=== PATIENT | female | born 1990 | race African-American/Black ===

== ENCOUNTER 2016-04-19 14:26 | Emergency (ER) | payer BC ==
[2016-04-19 14:36] VITALS: BP 112/66; PULSE 120; TEMP 98.7; BMI 30.9
--- NOTE | 2016-04-19 16:13 | PDOC ---
History of Present Illness - General Chief Complaint: Cold Symptoms Stated Complaint: FEVER, COUGH, COLD Time Seen by Provider: 04/19/16 15:46 History Source: Patient Exam Limitations: No Limitations - History of Present Illness Initial Comments: 04/19/16 16:07 cough, sore throat x 3 days; had fever; no NVD; 8 months no OB COs Timing/Duration: reports: yesterday Severity: reports: mild Possible Cause: No: allergen exposure, irritant gases exposure Modifying Factors: improves with: albuterol inhaler Past History - Past Medical History Allergies/Adverse Reactions: Allergies Allergy/AdvReac Type Severity Reaction Status Date / Time Penicillins Allergy Swelling Verified 04/19/16 14:36 prednisone Allergy Swelling Verified 04/19/16 14:36 Home Medications: Ambulatory Orders Pnv95/Ferrous Fumarate/FA [ Caplet] 1 each PO DAILY 11/18/15 Asthma: Yes - Surgical History Abdominal Surgery: Yes - Reproductive History (#): 1 - Psycho/Social/Smoking Cessation Hx Anxiety: No Suicidal Ideation: No Smoking History: Never smoked Hx Alcohol Use: No Drug/Substance Use Hx: No Substance Use Type: None Review of Systems - Review of Systems Constitutional: Yes: Malaise. No: Chills, Fever HEENTM: Yes: Nose Congestion, Throat Pain. No: Throat Swelling Respiratory: No: Cough, Stridor, Wheezing Cardiac (ROS): No: Symptoms Reported ABD/GI: No: Symptoms Reported, Diarrhea, Nausea, Indigestion : No: Frequency, Urgency *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 - Vital Signs Last Vital Signs Temp Pulse Resp BP Pulse Ox 98.7 F 120 H 20 112/66 98 04/19/16 14:33 04/19/16 14:33 04/19/16 14:33 04/19/16 14:33 04/19/16 14:33 - 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 General Appearance: Yes: Appropriately Dressed. No: Apparent Distress HEENT: positive: Nasal Congestion, Rhinorrhea. negative: Tonsillar Erythema, TM Bulging, TM Dull, TM Erythema Neck: positive: Supple, Lymphadenopathy (R), Lymphadenopathy (L). negative: Tender, Rigid Respiratory/Chest: positive: Lungs Clear. negative: Chest Tender, Respiratory Distress Cardiovascular: positive: Regular Rhythm, Regular Rate. negative: Murmur Gastrointestinal/Abdominal: positive: Normal Bowel Sounds, Soft. negative: Tender Medical Decision Making - Medical Decision Making 04/19/16 16:10 04/19/16 16:11 will tx as viral URI; tylenol with rest at home *DC/Admit/Observation/Transfer Diagnosis at time of Disposition: URI, acute - Discharge Dispostion Disposition: HOME Condition at time of disposition: Stable Admit: No - Patient Instructions Additional Instructions: please rest at home; lots of fluids; tylenol for fever - Post Discharge Activity Work/School Note: Back to Work
== END 2016-04-19 16:17 | disposition home or self-care (01) ==
LOC: JERFT 14:26
DX: J06.9 Acute upper respiratory infection, unspecified (principal)
CPT/HCPCS: 99281-25

== ENCOUNTER 2016-06-09 07:27 | Inpatient (IN) | payer BC ==
[2016-06-09] MEDS ORDERED: AMPICILLIN - 100 ML IVPB ONE (09:00)
[2016-06-09] MEDS ORDERED: TUBERCULIN PPD 5 TU/0.1ML SYRINGE (IN PATIENT USE ONLY) ID ONE (09:00)
[2016-06-09 09:14] LABS: BASOPHIL 0.6 % (0-2.0); EOSINOPHIL 1.7 % (0-4.5); MCH 29.5 pg (25.7-33.7); MCHC 33.4 g/dl (32.0-36.0); MEAN CELL VOLUME 88.5 fl (80-96); MEAN PLT VOLUME 8.8 fl (7.5-11.1); NEUTROPHILS 68.2 % (42.8-82.8); PLATELET COUNT 182 K/MM3 (134-434); RDW 14.6 % (11.6-15.6); WHITE BLOOD COUNT 8.3 K/mm3 (4.0-10.0)
[2016-06-09] MEDS ORDERED: DEXTROSE 5%-LACTATED RINGERS 1,000 ML IV SCH ×2 (09:15→11:30)
[2016-06-09 09:31] LABS: CALCIUM 9.7 mg/dL (8.5-10.1); CREATININE 0.9 mg/dL (0.55-1.02)
[2016-06-09 09:36] VITALS: BMI 32.3
[2016-06-09 09:48] LABS: INR 1.01 (0.82-1.09); PROTHROMBIN TIME (PATIENT) 11.1 SEC (9.98-11.88)
[2016-06-09 09:50] LABS: ACTIVATED PTT 26.6 SECONDS (26.9-34.4)
--- NOTE | 2016-06-09 11:09 | HP ---
[id number] Chief Complaint: Induction - postdates History of Present Illness: 25 yo EDC 06/01/16 EGA 41.1 weeks admitted for induction no ROM, bleeding or abd pain. +active FM + contractions History Source: Patient - Past Medical History ...: 1 ...Para: 0 ...Term: 0 ...: 0 ...Spon : 0 ...Induced : 0 ...Multiple Gestation: 0 ...LMP: 08/06/15 ...EDC by Sono: 06/01/16 - Past Surgical History Past Surgical History: Yes: None Hx Myomectomy: No Hx Transabdominal Cerclage: No - Smoking History Smoking history: Never smoked Have you smoked in the past 12 months: No - Alcohol/Substance Use Hx Alcohol Use: No History of Substance Use: reports: None - Social History Usual Living Arrangement: Yes: Alone History of Recent Travel: Yes Home Medications - Allergies Allergies/Adverse Reactions: Allergies Allergy/AdvReac Type Severity Reaction Status Date / Time prednisone Allergy Intermediate Swelling Verified 06/09/16 08:27 - Home Medications Home Medications: Ambulatory Orders Ferrous Sulfate 325 mg PO DAILY 06/09/16 Folic Acid 1 mg PO DAILY 06/09/16 Pnv95/Ferrous Fumarate/FA [ Vitamin Tablet] 1 each PO DAILY 06/09/16 Docusate Sodium [Colace -] 100 mg PO BID #60 capsule 06/11/16 Ibuprofen [Motrin -] 600 mg PO QID PRN #28 tablet 06/11/16 Review of Systems - Review of Systems Constitutional: reports: No Symptoms Eyes: reports: No Symptoms HENT: reports: No Symptoms Neck: reports: No Symptoms Cardiovascular: reports: No Symptoms Respiratory: reports: No Symptoms Gastrointestinal: reports: No Symptoms Genitourinary: reports: No Symptoms Breasts: reports: No Symptoms Reported Musculoskeletal: reports: No Symptoms Integumentary: reports: No Symptoms Neurological: reports: No Symptoms Endocrine: reports: No Symptoms Hematology/Lymphatic: reports: No Symptoms Psychiatric: reports: No Symptoms 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 - Maternity Vital Signs: Vital Signs Temperature 98.1 F 06/09/16 07:27 Pulse Rate 99 H 06/09/16 07:27 Respiratory Rate 18 06/09/16 07:27 Blood Pressure 130/77 06/09/16 07:27 O2 Sat by Pulse Oximetry (%) Constitutional: Yes: Well Nourished, No Distress Neck: Yes: WNL Cardiovascular: Yes: WNL, Regular Rate and Rhythm Lungs: Clear to auscultation Breast(s): Yes: WNL - Abdominal Exam/OB Fundal Height: 41 Number of Fetuses: Single Presentation: Vertex Contractions: Yes Regularity: Regular Intensity: Mild Monitor Mode: External Heart Rate (range): 135 Category: I - Vaginal Exam/OB Dilatation (cm): 3 Effacement (%): 90 Presentation: Vertex/Position - 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 Musculoskeletal: Yes: WNL Extremities: Yes: WNL Edema: No Integumentary: Yes: WNL Psychiatric: Yes: WNL, Alert, Oriented - Labs Lab Results: CBC, BMP 06/09/16 08:45 06/09/16 08:45 Problem List - Problems (1) Post-dates Code(s): O48.0 - POST-TERM Qualifiers: Post-term type: 40-42 weeks gestation Qualified Code(s): O48.0 - Post-term Assessment/Plan post dates Cat 1 Plan Pitocin
[2016-06-09] MEDS ORDERED: OXYTOCIN 15 UNITS/ LR 250 ML 250 ML IVPB SCH (11:15)
[2016-06-09] MEDS ORDERED: BUTORPHANOL TARTRATE 1 MG/ML VIAL IVPB ONE (11:21)
[2016-06-09] MEDS: AMPICILLIN - 100 ML IVPB SCH ×2 (14:00→17:13)
[2016-06-09] MEDS ORDERED: ELECTROLYTE-148 SOLN 500 ML IV ONE (16:00)
--- NOTE | 2016-06-09 16:19 | PN ---
Ante-Partal Exam - Subjective Subjective: Pt feeling some pain Vital Signs: Vital Signs Temperature 98.6 F 06/09/16 14:00 Pulse Rate 95 H 06/09/16 15:01 Respiratory Rate 20 06/09/16 15:01 Blood Pressure 120/73 06/09/16 15:01 O2 Sat by Pulse Oximetry (%) Bleeding: No Headache: No Visual changes: No Right upper quadrant pain: No Pain (scale 1-10): 8 - Contractions Contractions: Yes Regularity: Regular Intensity: Moderate Monitor Mode: External - Exam during Labor Heart Rate: 150 Variability: Moderate (moderate after scalp stimulation) Category: I Monitor Accelerations: Absent Monitor Decelerations: None Exam: Vaginal Dilatation (cm): 5 Effacement (%): 90 Amniotic Membrane Status: Ruptured (AROM for clear fluid at this examination) Amniotic Fluid: Clear Presentation: Vertex Station: -1 - Assessment/Plan Assessment/Plan: 25 y/o with SIUP at 41.1 weeks gestation, labor induction for late term - FHTs cat 1, was cat 2 earlier with minimal variability. NO decelerations noted, good scalp stimulation - for continuous monitoring - IOL, continue pitocin, s/p AROM for clear fluid at this exam - GBS positive - continue ampicillin for prophylaxis
--- NOTE | 2016-06-09 16:48 | PN ---
Ante-Partal Exam - Subjective Subjective: Pt feeling rectal pressure. Vital Signs: Vital Signs Temperature 98.6 F 06/09/16 14:00 Pulse Rate 103 H 06/09/16 16:17 Respiratory Rate 20 06/09/16 15:01 Blood Pressure 121/62 06/09/16 16:17 O2 Sat by Pulse Oximetry (%) Bleeding: No Headache: No Visual changes: No Right upper quadrant pain: No Pain (scale 1-10): 9 - Contractions Contractions: Yes Regularity: Regular Intensity: Mod/Strong Monitor Mode: External - Exam during Labor Heart Rate: 150 Variability: Minimal Category: II Monitor Accelerations: Absent Monitor Decelerations: None Exam: Vaginal Dilatation (cm): 6 Effacement (%): 100 Amniotic Membrane Status: Ruptured Presentation: Vertex Station: 0 - Assessment/Plan Assessment/Plan: for epidural continue iol with pitocin GBS positive, continue ampicillin anticipate
[2016-06-09] MEDS ORDERED: ELECTROLYTE-148 SOLN 1,000 ML IV SCH (17:00)
[2016-06-09] MEDS ORDERED: FENTANYL/BUPIVACAINE/NS/PF - PCEA - 50 ML DISP.SYRIN EP SCH (17:25)
--- NOTE | 2016-06-09 19:43 | PN ---
Ante-Partal Exam - Subjective Subjective: Pt feeling pressure to push. Vital Signs: Vital Signs Temperature 99.8 F H 06/09/16 18:00 Pulse Rate 105 H 06/09/16 18:40 Respiratory Rate 20 06/09/16 18:40 Blood Pressure 129/67 06/09/16 18:40 O2 Sat by Pulse Oximetry (%) 100 06/09/16 18:40 Bleeding: No Headache: No Visual changes: No Right upper quadrant pain: No Pain (scale 1-10): 2 - Contractions Contractions: Yes Regularity: Regular Intensity: Moderate Monitor Mode: External - Exam during Labor Heart Rate: 150 Variability: Minimal Category: II Monitor Accelerations: Absent Monitor Decelerations: Variable Exam: Vaginal Dilatation (cm): 10 Effacement (%): 100 Amniotic Membrane Status: Ruptured Presentation: Vertex Station: +2 - Assessment/Plan Assessment/Plan: OK to begin pushing anticipate
[2016-06-09] MEDS: D5W-LR W/ 20 UNITS OXYTOCIN 1,000 ML IV SCH (20:15)
[2016-06-09] MEDS ORDERED: BENZOCAINE 28 GM HEMORRHOIDAL OINTMENT TP PRN (20:27)
[2016-06-09] MEDS ORDERED: WITCH HAZEL 50% (TUCKS) 40 PAD/JAR PAD TP PRN (20:27)
[2016-06-09] MEDS ORDERED: BENZOCAINE 20% 57 GM BOTTLE TP PRN (20:27)
[2016-06-09] MEDS ORDERED: BISACODYL 10 MG SUPP.RECT RC PRN (20:27)
[2016-06-09] MEDS ORDERED: METHYLERGONOVINE MALEATE 0.2 MG/1 ML AMP IM PRN (20:27)
--- NOTE | 2016-06-09 20:35 | PN ---
Delivery - Delivery Vaginal Delivery: No Problems Type of Anesthesia: Epidural Episiotomy/Laceration: 2nd degree EBL (cc): 300 Delivery, Single - Stages of Labor Date of Delivery: 06/09/16 Time of Delivery: 20:05 Date Placenta Delivered: 06/09/16 Time Placenta Delivered: 20:15 Placenta: Yes: Spontaneous - Condition of Assembly Adjuster/Mechanical Detailer Present: No Gender: Female Weight: 9 lb Position: Right, OA - 1 Minute Total Score: 7 5 Minutes Total Score: 8 - [place] Feeding Plan Initial Plan: Exclusive throughout hospitalization Remarks - Remarks Remarks: Normal of baby girl from RUDY Position anterior shoulder (left) with dystocia - resolved with trey positioning and suprapubic pressure Approx 25 seconds between delivery of head and delivery of anterior shoulder remainder of infant delivered without difficulty cord clamped and cut - 3vC noted mouth and nose bulb suctioned Apgars 7/8 placenta delivered spontaneously and in tact 2nd degree laceration noted - repaired with 2-0 chromic in usual fashion mom stable baby to well baby nursery for observation sponge and needle count correct after delivery
[2016-06-10] MEDS: IBUPROFEN 600 MG TABLET (FP) PO PRN ×3 (01:20→19:11)
[2016-06-10] MEDS: ACETAMINOPHEN 325 MG TABLET (FP) PO PRN ×3 (01:24→19:10)
--- NOTE | 2016-06-10 07:44 | PN ---
Post Progress Note Type of Delivery: Vital Signs: Vital Signs Temperature 98 F 06/10/16 06:00 Pulse Rate 95 H 06/10/16 06:00 Respiratory Rate 18 06/10/16 06:00 Blood Pressure 107/61 06/10/16 06:00 O2 Sat by Pulse Oximetry (%) 100 06/09/16 21:30 Uterus: Yes: Fundus Firm, Fundus below umbilicus, Other (fibroid uterus noted) Abdomen/GI: Yes: Abdomen soft, Passing flatus, Tolerating PO. No: Abdominal Distention, Tender Lochia: Yes: Rubra Lochia, amount: Small Extremities: Yes: Calves non-tender. No: Edema Perineum: Yes: Laceration (2nd degree perineal lac - repaired and in tact) Activity: Ambulating - Labs Labs: CBC WBC 8.3 K/mm3 (4.0-10.0) 06/09/16 08:45 RBC 4.14 M/mm3 (3.60-5.2) 06/09/16 08:45 Hgb 12.2 GM/dL (10.7-15.3) 06/09/16 08:45 Hct 36.6 % (32.4-45.2) 06/09/16 08:45 MCV 88.5 fl (80-96) 06/09/16 08:45 MCHC 33.4 g/dl (32.0-36.0) 06/09/16 08:45 RDW 14.6 % (11.6-15.6) D 06/09/16 08:45 Plt Count 182 K/MM3 (134-434) D 06/09/16 08:45 MPV 8.8 fl (7.5-11.1) D 06/09/16 08:45 Neutrophils % 68.2 % (42.8-82.8) 06/09/16 08:45 Lymphocytes % 19.6 % (8-40) 06/09/16 08:45 Monocytes % 9.9 % (3.8-10.2) 06/09/16 08:45 Eosinophils % 1.7 % (0-4.5) 06/09/16 08:45 Basophils % 0.6 % (0-2.0) 06/09/16 08:45 Problem List - Problems (1) Vaginal delivery Code(s): O80 - ENCOUNTER FOR FULL-TERM UNCOMPLICATED DELIVERY Assessment/Plan 25 y/o PPD#1 s/p normal - AFVSS - CBC pending this a.m. - regular diet, PO pain meds, routine care
[2016-06-10 08:52] LABS: BASOPHIL 0.2 % (0-2.0); EOSINOPHIL 0.9 % (0-4.5); MCH 29.3 pg (25.7-33.7); MCHC 33.4 g/dl (32.0-36.0); MEAN CELL VOLUME 87.9 fl (80-96); MEAN PLT VOLUME 8.9 fl (7.5-11.1); NEUTROPHILS 72.1 % (42.8-82.8); PLATELET COUNT 153 K/MM3 (134-434); RDW 14.9 % (11.6-15.6); WHITE BLOOD COUNT 12.7 K/mm3 (4.0-10.0)
[2016-06-10] MEDS: PRENATAL VITAMINS W/ FOLIC ACID TABLET (FP) PO SCH (09:34)
[2016-06-10] MEDS ORDERED: DIPHTH,PERTUSS(ACELL),TET 0.5 ML DISP.SYRIN IM ONE (10:00)
[2016-06-10 17:54] VITALS: PULSE 98
[2016-06-10] MEDS ORDERED: SENNOSIDES/DOCUSATE COMBO (SENNA PLUS) TABLET (UD) PO PRN (22:00)
[2016-06-10] MEDS: D5W-LR W/ 20 UNITS OXYTOCIN 1,000 ML IV SCH (22:05)
[2016-06-11] MEDS: IBUPROFEN 600 MG TABLET (FP) PO PRN (08:23)
[2016-06-11] MEDS: ACETAMINOPHEN 325 MG TABLET (FP) PO PRN (08:24)
[2016-06-11] MEDS: PRENATAL VITAMINS W/ FOLIC ACID TABLET (FP) PO SCH (09:33)
[2016-06-11 09:49] VITALS: BP 117/70; TEMP 98.6
--- NOTE | 2016-06-11 10:13 | DS ---
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 ASSOCIATE Vital Signs: Vital Signs Temperature 98.6 F 06/11/16 07:40 Pulse Rate 98 H 06/11/16 07:40 Respiratory Rate 20 06/11/16 07:40 Blood Pressure 117/70 06/11/16 07:40 O2 Sat by Pulse Oximetry (%) 100 06/09/16 21:30 Constitutional: Yes: Well Nourished, No Distress, Calm Eyes: Yes: Conjunctiva Clear, EOM Intact HENT: Yes: Atraumatic, Normocephalic Neck: Yes: Supple, Trachea Midline Cardiovascular: Yes: Regular Rate and Rhythm Respiratory: Yes: Regular, CTA Bilaterally Gastrointestinal: Yes: Normal Bowel Sounds, Soft ....Post : Yes: Uterus firm, Uterus non-tender Neurological: Yes: Alert, Oriented Psychiatric: Yes: Alert, Oriented Labs: CBC, BMP 06/10/16 07:45 06/09/16 08:45 Delivery - Delivery Vaginal Delivery: No Problems Type of Anesthesia: Epidural Episiotomy/Laceration: 2nd degree EBL (cc): 300 Delivery, Single - Stages of Labor Date 1st Stage Initiatied: 06/09/16 Time 1st Stage Initiated: 17:00 Date 2nd Stage Initiated: 06/09/16 Time 2nd Stage Initiated: 19:25 Date of Delivery: 06/09/16 Time of Delivery: 20:05 Time Placenta Delivered: 20:15 Placenta: Yes: Spontaneous - Condition of Infant Maintenance Clerk/Heel Seat Trimmer Present: No Infant Gender: Female Weight: 9 lb Position: Right, OA Total Hours ROM (Hrs/Mins): 4 hours 15 minutes - 1 Minute Total Score: 7 5 Minutes Total Score: 8 - Feeding Plan Initial Plan: Exclusive throughout hospitalization Discharge Summary Reason For Visit: INDUCTION OF LABOR Current Active Problems Post-dates (Acute) Vaginal delivery (Acute) Procedures: Principal: Normal vaginal delivery Hospital Course: Unremarkable post recovery. Pt stable and discharged home in stable condition on post day 2. Condition: Good - Instructions Diet, Activity, Other Instructions: Physical activity Resume your normal everyday activity as tolerated no heavy lifting or strenuous exercise until seen by your surgeon. You may walk unlimited amounts and climb stairs. You may resume driving the car when you feel safe and comfortable behind the wheel. No sexual activity as instructed. Wound care If you have stitches, they will dissolve on their own. Do not attempt to remove them. You may shower, do not soak in tubs or pools or baths.. Diet There are no dietary restrictions. Eat healthy, high-fiber foods. Drink 6 to 8 glasses of liquid each day. This will assist in keeping your bowels regular. Pain management You may take Tylenol or acetaminophen or Ibuprofen as needed for pain. Call MD for any of the following: Severe pain not relieved by medication Fever of 101 or higher Excessive bleeding or drainage on dressing Inability to urinate Please call to make an appointment for 6 weeks. Referrals: Tameka Reveles DO [Staff Physician] - Disposition: HOME - Home Medications Comprehensive Discharge Medication List: Ambulatory Orders Ferrous Sulfate 325 mg PO DAILY 06/09/16 Folic Acid 1 mg PO DAILY 06/09/16 Pnv95/Ferrous Fumarate/FA [ Vitamin Tablet] 1 each PO DAILY 06/09/16 Docusate Sodium [Colace -] 100 mg PO BID #60 capsule 06/11/16 Ibuprofen [Motrin -] 600 mg PO QID PRN #28 tablet 06/11/16
== END 2016-06-11 16:10 | disposition home or self-care (01) | DRG 775 ==
LOC: JLDR 07:27 → J3W 22:38
PROVIDERS: ADMIT Obstetrics & Gynecology; ATTEND Obstetrics & Gynecology
PROC: 0KQM0ZZ Repair Perineum Muscle, Open Approach (ICD-10-PCS; principal; 2016-06-09)
PROC: 10E0XZZ Delivery of Products of Conception, External Approach (ICD-10-PCS; 2016-06-09)
DX: O48.0 Post-term pregnancy (principal); O70.1 Second degree perineal laceration during delivery; Z3A.41 41 weeks gestation of pregnancy; Z37.0 Single live birth
CPT/HCPCS: 36415; 59409; 71020-TC; 80048; 85025; 85610; 85730; 86593; 86850; 86900; 86901; 90715

== ENCOUNTER 2016-07-30 17:10 | Emergency (ER) | payer BC, OTHER ==
[2016-07-30 17:14] VITALS: BP 119/74; PULSE 78; TEMP 98.4; BMI 27.4
[2016-07-30] MEDS ORDERED: IBUPROFEN 600 MG TABLET (FP) PO ONE ×2 (17:46)
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
== END 2016-07-30 18:55 | disposition home or self-care (01) ==
LOC: JERFT 17:10
DX: S39.82XA Other specified injuries of lower back, initial encounter (principal); S69.81XA Other specified injuries of right wrist, hand and finger(s), initial encounter; V43.52XA Car driver injured in collision with other type car in traffic accident, initial encounter; Y92.414 Local residential or business street as the place of occurrence of the external cause; Y93.89 Activity, other specified; Y99.8 Other external cause status
CPT/HCPCS: 73110-TC-RT; 99281-25

== ENCOUNTER 2016-09-27 12:48 | Emergency (ER) | payer BC ==
[2016-09-27 12:55] VITALS: BP 132/70; PULSE 76; TEMP 98.1; BMI 28.7
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
[2016-09-27 15:08] LABS: URINE APPEARANCE SLCLOUDY; URINE BILIRUBIN NEGATIVE (NEGATIVE); URINE BLOOD NEGATIVE (NEGATIVE); URINE COLOR LTYELLOW; URINE GLUCOSE (UA) NEGATIVE (NEGATIVE); URINE KETONE NEGATIVE (NEGATIVE); URINE LEUK ESTERASE 2+ (NEGATIVE); URINE NITRITE NEGATIVE (NEGATIVE); URINE PROTEIN NEGATIVE (NEGATIVE); URINE UROBILINOGEN NEGATIVE E.U./dl (0.2-1.0)
[2016-09-27 15:11] LABS: URINE BACTERIA MODERATE /hpf (NONE SEEN); URINE MUCUS RARE; URINE RBC <1 /hpf (0-3); URINE WBC 1 /hpf (3-5)
== END 2016-09-27 14:06 | disposition home or self-care (01) ==
LOC: JERFT 12:48
DX: M25.531 Pain in right wrist (principal); G89.29 Other chronic pain
CPT/HCPCS: 81003; 81015; 84703; 99281-25

== ENCOUNTER 2018-05-16 16:26 | Emergency (ER) | payer SELFPAY ==
[2018-05-16 16:36] VITALS: BMI 28.4
[2018-05-16] MEDS ORDERED: ACETAMINOPHEN 500 MG TABLET (FP) PO ONE (17:15)
[2018-05-16] MEDS ORDERED: ACETAMINOPHEN 325 MG TABLET (FP) ONE (17:16)
--- NOTE | 2018-05-16 17:41 | PDOC ---
History of Present Illness - General Chief Complaint: Vaginal Sxs Stated Complaint: ABDOMINAL PAIN Time Seen by Provider: 05/16/18 17:09 History Source: Patient Exam Limitations: No Limitations - History of Present Illness Travel History: No Initial Comments: 05/16/18 17:15 27-year-old female presents to ED with fever, chills, dribbling clear nonodorous liquid from her vagina, urinary frequency and urgency without normal flow. Patient states LMP is normal and did a home test which was negative. Patient denies vaginal odor, discharge prior to urinary complaints, upper abdominal pain or back pain. Patient does state mild suprapubic pressure. Timing/Duration: reports: intermittent Quality: reports: mild, fullness Abdominal Pain Onset Location: reports: suprapubic Pain Radiation: reports: no radiation Aggravating Factors: improves with: None Alleviating Factors: improves with: None Past History - Travel Traveled outside of the country in the last 30 days: No Close contact w/someone who was outside of country & ill: No - Past Medical History Allergies/Adverse Reactions: Allergies Allergy/AdvReac Type Severity Reaction Status Date / Time prednisone Allergy Intermediate Swelling Verified 05/16/18 16:35 Home Medications: Ambulatory Orders Cephalexin [Keflex] 500 mg PO BID #10 capsule 05/16/18 metroNIDAZOLE 0.75% GEL [Metrogel 0.75% Gel -] 1 applic TP DAILY #1 tube Asthma: Yes (LAST ATTACK >1YR AGO) Cancer: No Cardiac Disorders: No COPD: No Diabetes: No HTN: No Seizures: No Thyroid Disease: No - Surgical History Abdominal Surgery: Yes (as a baby) - Reproductive History LMP Normal: Yes Is Patient Now?: No (#): 1 - Suicide/Smoking/Psychosocial Hx Smoking History: Never smoked Have you smoked in the past 12 months: No Hx Alcohol Use: No Drug/Substance Use Hx: No Substance Use Type: None Hx Substance Use Treatment: No Patient Lives Alone: No Lives with/in: parents Abd/GI Specific PMHX - Complaint Specific PMHX Colitis: No Review of Systems - Review of Systems Able to Perform ROS?: Yes Constitutional: Yes: Chills, Fever HEENTM: No: Symptoms Reported Respiratory: No: Symptoms reported Cardiac (ROS): No: Symptoms Reported : Yes: Discharge, Frequency, Urgency Musculoskeletal: No: Symptoms Reported Integumentary: No: Symptoms Reported Neurological: No: Symptoms reported Endocrine: No: Symptoms Reported Hematologic/Lymphatic: No: Symptoms Reported *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 - Vital Signs Last Vital Signs Temp Pulse Resp BP Pulse Ox 101.1 F H 104 H 20 134/81 100 05/16/18 16:31 05/16/18 16:31 05/16/18 16:31 05/16/18 16:31 05/16/18 16:31 - 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 General Appearance: Yes: Nourished, Appropriately Dressed. No: Apparent Distress HEENT: positive: EOMI Respiratory/Chest: positive: Lungs Clear, Normal Breath Sounds. negative: Respiratory Distress Cardiovascular: positive: Regular Rhythm, Tachycardia. negative: Murmur Female Pelvic Exam: positive: cervical os closed. negative: CMT, discharge, adnexal tenderness, vaginal bleeding Gastrointestinal/Abdominal: positive: Normal Bowel Sounds, Soft, Tenderness ( mild midsuprapubic). negative: Distended, Guarding, Rebound Musculoskeletal: negative: CVA Tenderness Integumentary: positive: Normal Color, Warm, Moist Neurologic: positive: Motor Strength 5/5 (ambulatory) Moderate Sedation - Procedure Monitoring Vital Signs: Procedure Monitoring Vital Signs Temperature 101.1 F H 05/16/18 16:31 Pulse Rate 104 H 05/16/18 16:31 Respiratory Rate 20 05/16/18 16:31 Blood Pressure 134/81 05/16/18 16:31 O2 Sat by Pulse Oximetry (%) 100 05/16/18 16:31 ED Treatment Course - LABORATORY CBC & Chemistry Diagram: 05/16/18 18:22 05/16/18 18:22 - Medications Given in the ED: ED Medications Discontinued Medications Generic Name Dose Route Start Last Admin Trade Name Freq PRN Reason Stop Dose Admin Acetaminophen 975 mg 05/16/18 17:15 05/16/18 17:22 Tylenol - PO 05/16/18 17:16 975 mg ONCE ONE Administration Medical Decision Making - Medical Decision Making 05/16/18 17:15 CC: Patient with urinary complaints along with vaginal "dribbling clear liquid. " Exam: No vaginal discharge or order on exam. Mild mid suprapubic tenderness. Patient febrile plan: Urinalysis urine culture urine and Tylenol. If negative , will proceed with blood work and ultrasound. 05/16/18 18:16 Laboratory Tests 02/24/19 17:25 Urine Protein 1+ H Urine Ketones Trace H Urine Nitrite Negative Urine Urobilinogen 4.0 e.u/dl H Urine WBC (Auto) Pending Urine RBC (Auto) Pending Urine HCG, Qual Negative 05/16/18 18:16 Laboratory Tests 05/16/18 17:25 Urine WBC (Auto) 4 Urine RBC (Auto) 81 Pt denies menstruation or hx of renal colic 05/16/18 18:29 Considering differential PID. Administered IV fluids and if ultrasound and labs are negative/normal, patient will be treated for UTI. 05/16/18 18:59 Laboratory Tests 05/16/18 05/16/18 18:22 18:22 WBC 3.2 L Hgb 14.2 Hct 40.0 D Neutrophils % 58.8 Sodium 136 Potassium 3.6 Chloride 103 Carbon Dioxide 25 Anion Gap 8 BUN 8 Creatinine 0.9 Creat Clearance w eGFR > 60 Calcium 8.4 L Total Bilirubin 0.4 AST 19 ALT 23 Alkaline Phosphatase 73 Total Protein 7.1 Albumin 3.8 *DC/Admit/Observation/Transfer Diagnosis at time of Disposition: Cystitis - Discharge Dispostion Disposition: HOME Condition at time of disposition: Stable - Prescriptions Prescriptions: Cephalexin [Keflex] 500 mg PO BID #10 capsule metroNIDAZOLE 0.75% GEL [Metrogel 0.75% Gel -] 1 applic TP DAILY #1 tube - Referrals - Patient Instructions Printed Discharge Instructions: DI for Acute Cystitis Additional Instructions: Your Discharge Instructions: You must call primary care physician within 24 hours to arrange follow-up. Return to the Emergency Department with any new, persistent or worsening symptoms, for fever, chills, SOB, dizziness or any other concerning changes that may occur. - Post Discharge Activity
[2018-05-16 17:54] LABS: URINE APPEARANCE CLEAR; URINE BILIRUBIN NEGATIVE (<2.0 mg/dL); URINE COLOR YELLOW; URINE GLUCOSE (UA) NEGATIVE (NEGATIVE); URINE KETONE TRACE (NEGATIVE); URINE LEUK ESTERASE NEGATIVE (NEGATIVE); URINE NITRITE NEGATIVE (NEGATIVE); URINE PROTEIN 1+ (NEGATIVE); URINE UROBILINOGEN 4.0 E.U/dl mg/dL (0.2-1.0)
[2018-05-16 17:56] LABS: HCG,QUALITATIVE URINE Negative
[2018-05-16 17:58] LABS: EPI CELLS RARE /HPF (FEW); URINE MUCUS FEW
[2018-05-16] MEDS ORDERED: SODIUM CHLORIDE 1,000 ML IV STA (18:08)
[2018-05-16 18:29] LABS: BASO % 0.6 % (0-2.0); EOS % 0.9 % (0-4.5); HEMOGLOBIN 14.2 GM/dL (10.7-15.3); LYMPH % 29.2 % (8-40); MCH 31.8 pg (25.7-33.7); MCHC 35.5 g/dl (32.0-36.0); MEAN CELL VOLUME 89.5 fl (80-96); MEAN PLT VOLUME 8.1 fl (7.5-11.1); MONO % 10.5 % (3.8-10.2); NEUT % 58.8 % (42.8-82.8); PLATELET COUNT 195 K/MM3 (134-434); RBC 4.47 M/mm3 (3.60-5.2); RDW 13.1 % (11.6-15.6); WHITE BLOOD COUNT 3.2 K/mm3 (4.0-10.0)
[2018-05-16 18:54] LABS: ALBUMIN 3.8 g/dl (3.4-5.0); ALK PHOS 73 U/L (45-117); ANION GAP 8 MMOL/L (8-16); BILIRUBIN,TOTAL 0.4 mg/dL (0.2-1); BLOOD UREA NITROGEN 8 mg/dL (7-18); CALCIUM 8.4 mg/dL (8.5-10.1); CHLORIDE 103 mmol/L (98-107); CO2 25 mmol/L (21-32); CREATININE 0.9 mg/dL (0.55-1.3); GLUCOSE,RANDOM 102 mg/dL (74-106); POTASSIUM 3.6 mmol/L (3.5-5.1); SGOT/AST 19 U/L (15-37); SGPT/ALT 23 U/L (13-61); SODIUM 136 mmol/L (136-145); TOT PROT 7.1 g/dl (6.4-8.2)
[2018-05-16 21:09] VITALS: BP 125/79; PULSE 72; TEMP 99.1
--- NOTE | 2018-05-16 21:19 | PDOC ---
*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 - Vital Signs Last Vital Signs Temp Pulse Resp BP Pulse Ox 99.1 F 72 18 125/79 98 05/16/18 21:08 05/16/18 21:08 05/16/18 21:08 05/16/18 21:08 05/16/18 21:08 ED Treatment Course - LABORATORY CBC & Chemistry Diagram: 05/16/18 18:22 05/16/18 18:22 - ADDITIONAL ORDERS Additional order review: Laboratory Results 05/16/18 05/16/18 05/16/18 18:22 18:22 17:25 Sodium 136 Potassium 3.6 Chloride 103 Carbon Dioxide 25 Anion Gap 8 BUN 8 Creatinine 0.9 Creat Clearance w eGFR > 60 Random Glucose 102 Lactic Acid 1.0 Calcium 8.4 L Total Bilirubin 0.4 AST 19 ALT 23 Alkaline Phosphatase 73 Total Protein 7.1 Albumin 3.8 Urine Color Yellow Urine Appearance Clear Urine pH 6.0 Ur Specific [place] 1.027 Urine Protein 1+ H Urine Glucose (UA) Negative Urine Ketones Trace H Urine Blood Negative Urine Nitrite Negative Urine Bilirubin Negative Urine Urobilinogen 4.0 e.u/dl H Ur Leukocyte Esterase Negative Urine WBC (Auto) 4 Urine RBC (Auto) 81 Ur Epithelial Cells Rare Urine Mucus Few Urine HCG, Qual Negative 05/16/18 18:22 RBC 4.47 MCV 89.5 MCHC 35.5 RDW 13.1 D MPV 8.1 Neutrophils % 58.8 Lymphocytes % 29.2 D Monocytes % 10.5 H Eosinophils % 0.9 Basophils % 0.6 - Medications Given in the ED: ED Medications Discontinued Medications Generic Name Dose Route Start Last Admin Trade Name Raffi PRN Reason Stop Dose Admin Acetaminophen 975 mg 05/16/18 17:15 05/16/18 17:22 Tylenol - PO 05/16/18 17:16 975 mg ONCE ONE Administration Sodium Chloride 1,000 mls @ 1,000 mls/hr 05/16/18 18:08 05/16/18 18:25 Normal Saline - IV 05/16/18 19:07 1,000 mls/hr ASDIR STA Administration Medical Decision Making - Medical Decision Making 05/16/18 1900 Patient endorsed to me to follow the US and disposition. 05/16/18 21:15 Patient Full Name: ALEK HOLMAN Patient Accession No: [id number] Patient : 1990 Reason for Exam: pelvic pain,r/o PID Referring Physician: VIVIEN MCCORD Patient Name: RIVER GASTON THIS IS A PRELIMINARY REPORT FROM [facility] EXAM: Pelvic ultrasound, transabdominal and transvaginal with duplex of ovaries IMAGES: 27 DATE OF EXAM: 2018-05-16 19:28:03 REASON FOR EXAM: Pelvic pain. Rule out PID. COMPARISON: None. FINDINGS: 5 cm fibroid at uterine fundus. Normal endometrial stripe. No large ovarian cysts. Duplex Ultrasound: Appropriate arterial and/or venous flow are noted in both ovaries, making torsion unlikely at this time. No significant free pelvic fluid. No obvious adnexal abscess. THIS DOCUMENT HAS BEEN ELECTRONICALLY SIGNED Aime Rhodes MD 05/16/2018 21:09 DONOVAN Nicholas Please call [facility] [phone] ([phone]) with questions. INTERPRETING RADIOLOGIST: Aime Rhodes MD Electronically Signed: May 16, 2018 09:11PM EST since states she has history BV and this discharge was when she had BV. Will give patient a Rx for Metrogel. Patient still c/o pressure with urination will put on Keflex. Selected Entries 05/16/18 21:08 Temperature 99.1 F Pulse Rate [ 72 Apical] Respiratory 18 Rate Blood Pressure 125/79 [Left Arm] O2 Sat by Pulse 98 Oximetry (%) I discussed the physical exam findings, ancillary test results and final diagnoses with the patient. I answered all of the patient's questions. The patient was satisfied with the care received and felt comfortable with the discharge plan and treatment plan. The Patient agrees to follow up with the primary care physician within 24-72 hours. *DC/Admit/Observation/Transfer Diagnosis at time of Disposition: Cystitis - Discharge Dispostion Disposition: HOME Condition at time of disposition: Stable - Prescriptions Prescriptions: Cephalexin [Keflex] 500 mg PO BID #10 capsule metroNIDAZOLE 0.75% GEL [Metrogel 0.75% Gel -] 1 applic TP DAILY #1 tube - Referrals - Patient Instructions Printed Discharge Instructions: DI for Acute Cystitis Additional Instructions: Your Discharge Instructions: You must call primary care physician within 24 hours to arrange follow-up. Return to the Emergency Department with any new, persistent or worsening symptoms, for fever, chills, SOB, dizziness or any other concerning changes that may occur. - Post Discharge Activity
[2018-05-16] MEDS ORDERED: CEPHALEXIN MONOHYDRATE 500 MG CAPSULE (UD) PO ONE (22:07)
[2018-05-16] MEDS ORDERED: CEPHALEXIN MONOHYDRATE 500 MG CAPSULE (UD) ONE (22:10)
== END 2018-05-16 22:15 | disposition home or self-care (01) ==
LOC: JER 16:26
PROC: 3E0337Z Introduction of Electrolytic and Water Balance Substance into Peripheral Vein, Percutaneous Approach (ICD-10-PCS; principal; 2018-05-16)
DX: N30.00 Acute cystitis without hematuria (principal)
CPT/HCPCS: 36415; 76830-TC; 76856-TC; 80053; 81003; 81015; 83605; 84703; 85025; 87086; 87389; 87491; 87591; 99282-25; J7030

== ENCOUNTER 2019-02-25 21:13 | Emergency (ER) | payer OTHER ==
[2019-02-25 21:19] VITALS: BP 125/90; PULSE 87; TEMP 98.3; BMI 28.2
--- NOTE | 2019-02-25 22:04 | PDOC ---
History of Present Illness - General Chief Complaint: Respiratory Stated Complaint: ASTHMA ATTACK Time Seen by Provider: 02/25/19 21:21 History Source: Patient Exam Limitations: No Limitations Past History - Travel Traveled outside of the country in the last 30 days: No Close contact w/someone who was outside of country & ill: No - Past Medical History Allergies/Adverse Reactions: Allergies Allergy/AdvReac Type Severity Reaction Status Date / Time prednisone Allergy Intermediate Swelling Verified 02/25/19 21:18 Home Medications: Ambulatory Orders Cephalexin [Keflex] 500 mg PO BID #10 capsule 05/16/18 metroNIDAZOLE 0.75% GEL [Metrogel 0.75% Gel -] 1 applic TP DAILY #1 tube Ibuprofen 600 mg PO Q6H #30 tablet 02/25/19 Asthma: Yes (LAST ATTACK >1YR AGO) Cancer: No Cardiac Disorders: No COPD: No Diabetes: No HTN: No Seizures: No Thyroid Disease: No - Surgical History Abdominal Surgery: Yes (as a baby) - Reproductive History (#): 1 - Psycho Social/Smoking Cessation Hx Smoking History: Never smoked Have you smoked in the past 12 months: No Hx Alcohol Use: No Drug/Substance Use Hx: No Substance Use Type: None Hx Substance Use Treatment: No Review of Systems - Review of Systems Able to Perform ROS?: Yes Comments:: 02/25/19 22:19 CONSTITUTIONAL: Absent: fever, chills, diaphoresis, generalized weakness, malaise, loss of appetite HEENT: Present: Nasal congestion. Absent: rhinorrhea, throat pain, throat swelling, difficulty swallowing, mouth swelling, ear pain, eye pain, visual Changes CARDIOVASCULAR: Absent: chest pain, loss of consciousness, palpitations, irregular heart rate, peripheral edema RESPIRATORY: Present: Wheezing, shortness of breath, cough Absent: dyspnea with exertion, orthopnea, stridor, hemoptysis GASTROINTESTINAL: Absent: abdominal pain, abdominal distension, nausea, vomiting, diarrhea, constipation, melena, hematochezia SKIN: Absent: rash, itching, pallor NEUROLOGIC: Absent: headache, focal weakness or paresthesias, dizziness, unsteady gait, seizure, mental status changes, bladder or bowel incontinence PSYCHIATRIC: Absent: anxiety, depression, suicidal or homicidal ideation, hallucinations. Is the patient limited Kyrgyz proficient: No *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 - Vital Signs Last Vital Signs Temp Pulse Resp BP Pulse Ox 98.3 F 87 18 125/90 100 02/25/19 21:16 02/25/19 21:16 02/25/19 21:16 02/25/19 21:16 02/25/19 21:16 - 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 02/25/19 22:20 GENERAL: Well developed, well nourished. Awake and alert. No acute distress. HEENT: Normocephalic, atraumatic. PERRLA, EOMI. No conjunctival pallor. Sclera are non- icteric. Moist mucous membranes. Oropharynx is clear. NECK: Supple. Full ROM. No lymphadenopathy. CARDIOVASCULAR: Regular rate and rhythm. No murmurs, rubs, or gallops. Distal pulses are 2+ and symmetric. PULMONARY: Patient with bilateral expiratory wheezing. Fair aeration to the bases. No evidence of respiratory distress. No rales or rhonchi. SKIN: Warm and dry. Normal capillary refill. No rashes. No jaundice. NEUROLOGICAL: Alert, awake, appropriate. Cranial nerves 2-12 intact. No deficits to light touch and temperature in face, upper extremities and lower extremities. No motor deficits in the in face, upper extremities and lower extremities. Normoreflexic in the upper and lower extremities. Normal speech. Toes are down- going bilaterally. Gait is normal without ataxia. PSYCHIATRIC: Cooperative. Good eye contact. Appropriate mood and affect. Medical Decision Making - Medical Decision Making 02/25/19 22:21 Patient is a 28-year-old female with past medical history of asthma, who presents to the ER today for wheezing and shortness of breath starting today. She states that she has not had exacerbation of her asthma in a long time, and she cannot find her albuterol inhaler. She notes that her lungs feel tight. She states that she has not been admitted for her asthma since she was 16 years old. She is never been intubated for her asthma. She also notes some associated nasal congestion. Denies fevers, chills, sore throat, earache, nausea, vomiting and diarrhea. A/P: Asthma exacerbation On exam patient with expiratory wheezing throughout all lung casey and fair aeration to the bases. Patient allergic to prednisone and prednisone derivatives. We will treat with 4 duo nebs and reevaluate. 02/25/19 22:56 Lungs now clear to auscultation bilaterally. Patient reports headache. Motrin and Tylenol given with relief of symptoms. No neurological deficits Discharge home with symptomatic relief and primary care follow-up I discussed the physical exam findings, ancillary test results and final diagnoses with the patient. I answered all of the patient's questions. The patient was satisfied with the care received and felt comfortable with the discharge plan and treatment plan. The Patient agrees to follow up with the primary care physician/specialist within 24-72 hours. Return precautions were given. Discharge - Discharge Information Problems reviewed: Yes Clinical Impression/Diagnosis: Asthma Qualifiers: Asthma severity: mild Asthma persistence: intermittent Asthma complication type : with acute exacerbation Qualified Code(s): J45.21 - Mild intermittent asthma with (acute) exacerbation Condition: Stable Disposition: HOME - Admission No - Follow up/Referral Referrals: Ryan Chery [Primary Care Provider] - Emanuel Lou MD [Staff Physician] - - Patient Discharge Instructions Patient Printed Discharge Instructions: DI for Asthma -- Adult Additional Instructions: You were evaluated for your difficulty breathing today. It is most likely an asthma exacerbation. Please use your albuterol inhaler every 4 hours until your symptoms resolve. Please take Motrin 600 mg every 6 hours as needed for headache. Please follow-up with your primary care doctor this week. Please follow-up with an operations associate to see if you are still allergic to prednisone. A referral has been provided Return to the ER for difficulty breathing, fever or if you have any changes in your symptoms. - Post Discharge Activity Work/Back to School Note: Back to Work
[2019-02-25] MEDS: ALBUTEROL SO4 2.5/IPRATROPIUM 0.5 INH SOL 3 ML VIAL.NEB. NEB SCH ×3 (22:16→22:58)
[2019-02-25] MEDS ORDERED: IBUPROFEN 600 MG TABLET (FP) PO ONE ×2 (22:26→22:30)
[2019-02-25] MEDS ORDERED: ALBUTEROL SO4 2.5/IPRATROPIUM 0.5 INH SOL 3 ML VIAL.NEB. NEB ONE (22:37)
[2019-02-25] MEDS ORDERED: ACETAMINOPHEN 650 MG/20.3 ML ORAL SOLUTION (CUPS) PO ONE (22:56)
[2019-02-25] MEDS ORDERED: ACETAMINOPHEN 325 MG TABLET (FP) ONE (22:57)
== END 2019-02-25 23:01 | disposition home or self-care (01) ==
LOC: JERFT 21:13
PROC: 3E0F7GC Introduction of Other Therapeutic Substance into Respiratory Tract, Via Natural or Artificial Opening (ICD-10-PCS; principal; 2019-02-25)
DX: J45.21 Mild intermittent asthma with (acute) exacerbation (principal); R51 Headache
CPT/HCPCS: 99281-25

== ENCOUNTER 2021-06-19 20:38 | Emergency (ER) | payer OTHER ==
[2021-06-19 20:58] VITALS: PULSE 78; BMI 29.0
[2021-06-19] MEDS ORDERED: ACETAMINOPHEN 1000 MG/100 ML BAG IVPB ONE (21:51)
[2021-06-19] MEDS ORDERED: SODIUM CHLORIDE 1,000 ML IV STA (21:51)
[2021-06-19] MEDS ORDERED: ACETAMINOPHEN INJECTION 100 ML IVPB ONE (21:56)
[2021-06-19 22:31] LABS: BASO % 0.9 % (0-2.0); EOS % 4.3 % (0-4.5); HEMATOCRIT 40.6 % (32.4-45.2); HEMOGLOBIN 14.1 GM/dL (10.7-15.3); LYMPH % 45.3 % (8-40); MCH 30.8 pg (25.7-33.7); MCHC 34.8 g/dl (32.0-36.0); MEAN CELL VOLUME 88.6 fl (80-96); MEAN PLT VOLUME 7.8 fl (7.5-11.1); MONO % 7.6 % (3.8-10.2); NEUT % 41.9 % (42.8-82.8); PLATELET COUNT 295 10^3/uL (134-434); RBC 4.58 M/mm3 (3.60-5.2); RDW 13.2 % (11.6-15.6); WHITE BLOOD COUNT 5.5 K/mm3 (4.0-10.0)
[2021-06-19 22:39] LABS: CALCIUM 9.3 mg/dL (8.5-10.1)
[2021-06-19 22:40] LABS: ALBUMIN 3.9 g/dl (3.4-5.0); BLOOD UREA NITROGEN 11.4 mg/dL (7-18)
[2021-06-19 22:43] LABS: CREATININE 0.9 mg/dL (0.55-1.3)
[2021-06-19 22:44] LABS: BILIRUBIN,TOTAL 0.3 mg/dL (0.2-1); TOT PROT 7.5 g/dl (6.4-8.2)
[2021-06-20 01:48] VITALS: BP 120/80; TEMP 98.5
== END 2021-06-20 03:24 | disposition home or self-care (01) ==
LOC: JER 20:38
PROC: 3E0337Z Introduction of Electrolytic and Water Balance Substance into Peripheral Vein, Percutaneous Approach (ICD-10-PCS; principal; 2021-06-19)
DX: R07.9 Chest pain, unspecified (principal)
CPT/HCPCS: 36415; 71275-TC; 80053; 84484; 84703; 85025; 85379; 93005; 93010; 99285-25